=== PATIENT | female | born 1970 | race Caucasian/White ===

== ENCOUNTER → 2022-07-10 08:20 | Outpatient (CLI) | payer OTHER, SELFPAY ==
--- NOTE | 2022-07-10 08:30 | XR_ITS ---
FINAL REPORT CLINICAL HISTORY: ankle pain FINDINGS: RIGHT ANKLE Three views of the right ankle were obtained. There is no acute fracture or dislocation. There are mild degenerative changes. There is a chronic calcification adjacent to the medial malleolus. There is no soft tissue abnormality. IMPRESSION: Mild degenerative changes with no acute bony abnormality. Reviewed, Interpreted and Dictated by Philip Chambers III, MD Transcribed by Heena Henderson Authenticated and [facility]
--- NOTE | 2022-07-10 08:30 | XR_ITS ---
FINAL REPORT CLINICAL HISTORY: foot pain FINDINGS: RIGHT FOOT Three views of the right foot demonstrate no acute fracture or dislocation. There are mild degenerative changes at the 1st MTP joint. The soft tissues are unremarkable. IMPRESSION: No acute bony abnormality. Mild degenerative changes at the 1st MTP joint. Reviewed, Interpreted and Dictated by Philip Chambers III, MD Transcribed by Heena Henderson Authenticated and [facility]
--- NOTE | 2022-07-10 08:30 | XR_ITS ---
FINAL REPORT CLINICAL HISTORY: ankle pain FINDINGS: LEFT ANKLE Three views of the left ankle were obtained. There is no acute fracture or dislocation. There are mild degenerative changes. There is a chronic calcification in inferior to the medial malleolus. There is a small plantar calcaneal spur. There is no soft tissue abnormality. IMPRESSION: Mild degenerative changes with no acute bony abnormality. Reviewed, Interpreted and Dictated by Philip Chambers III, MD Transcribed by Heena Henderson Authenticated and [facility]
--- NOTE | 2022-07-10 08:30 | XR_ITS ---
FINAL REPORT CLINICAL HISTORY: foot pain FINDINGS: LEFT FOOT Three views of the left foot demonstrate no acute fracture or dislocation. There are mild degenerative changes at the 1st MTP joint. There is a small plantar calcaneal spur. The soft tissues are unremarkable. IMPRESSION: No acute bony abnormality. Mild degenerative changes at the 1st MTP joint. Reviewed, Interpreted and Dictated by Philip Chambers III, MD Transcribed by Heena Henderson Authenticated and [facility]
== END ==
PROVIDERS: Visit Provider Podiatrist
DX: M25.572 Pain in left ankle and joints of left foot (principal); M25.571 Pain in right ankle and joints of right foot; M79.672 Pain in left foot; M79.671 Pain in right foot
CPT/HCPCS: 73610; 73630